=== PATIENT | male | born 1995 | race African-American/Black ===

== ENCOUNTER 2017-05-12 12:52 | Emergency (ER) | payer MEDICAID ==
[~2017-05-12] VITALS: Ht 188 cm; Wt 70.4 kg
[2017-05-12] MEDS ORDERED: IBUPROFEN 600MG TABLET PO ONE (14:30)
[2017-05-12 14:57] VITALS: BP 123/72
== END 2017-05-12 14:35 | disposition home or self-care (01) ==
LOC: ER 12:52
DX: S93.402A Sprain of unspecified ligament of left ankle, initial encounter (principal); W50.2XXA Accidental twist by another person, initial encounter; Y93.67 Activity, basketball; Y92.89 Other specified places as the place of occurrence of the external cause; Y99.8 Other external cause status
CPT/HCPCS: 73610; 99284; Z7610